=== PATIENT | female | born 1940 | race African-American/Black ===

== ENCOUNTER 2024-12-17 01:49 | Emergency (ER) | payer OTHER ==
[~2024-12-17] VITALS: Ht 165.1 cm; Wt 104.0 kg
[2024-12-17 01:56] VITALS: O2SAT 98
[2024-12-17 02:22] LABS: BASOPHILS % 0.5 % (0.0-2.0); EOSINOPHILS % 2.8 % (0.0-5.0); HEMATOCRIT. 41.3 % (36.0-48.0); HEMOGLOBIN. 13.4 g/dL (12.0-16.0); LYMPHOCYTES % 14.3 % (20.0-50.0); MEAN CORPUSCULAR HEMOGLOBIN 29.4 pg (28.0-32.0); MEAN CORPUSCULAR HGB CONC 32.4 g/dL (31.0-37.0); MEAN CORPUSCULAR VOLUME 90.9 fL (81.0-99.0); MEAN PLATELET VOLUME 8.1 fl (7.4-10.4); MONOCYTES % 9.5 % (2.0-8.0); NEUTROPHILS % 72.9 % (40.0-76.0); PLATELET 166 x1000/uL (130-400); RED BLOOD CELL COUNT 4.55 mill/uL (4.2-5.4); RED CELL DISTRIBUTION WIDTH 15.8 % (11.6-14.6); WHITE BLOOD COUNT 6.7 x1000/uL (4.5-11.0)
[2024-12-17 02:34] LABS: POTASSIUM 3.7 mEq/L (3.5-5.1)
[2024-12-17 02:35] LABS: CALCIUM 9.3 mg/dL (8.7-10.4)
[2024-12-17 02:40] LABS: CREATININE 1.2 mg/dL (0.6-1.0)
[2024-12-17] MEDS: MORPHINE SULFATE 2 MG/ML INJ (NOT FOR IM USE) IV ONE (03:20)
[2024-12-17] MEDS: ACETAMINOPHEN 325MG TABLET PO ONE (04:12)
[2024-12-17] MEDS: GABAPENTIN 100MG CAPSULE PO ONE (04:12)
[2024-12-17 07:47] VITALS: BP 156/75; PULSE 70; RESP 16; TEMP 36.6; O2SAT 98
== END 2024-12-17 08:17 ==
LOC: ER 01:49 → CANBEDREQ 06:52 → ER 08:17
DX: M79.652 Pain in left thigh (principal); I10 Essential (primary) hypertension; E11.9 Type 2 diabetes mellitus without complications; Z96.649 Presence of unspecified artificial hip joint; Z88.8 Allergy status to other drugs, medicaments and biological substances
CPT/HCPCS: 36415; 80048; 85025; 99285; J2270

== ENCOUNTER 2025-03-29 10:07 | Emergency (ER) | payer OTHER ==
[~2025-03-29] VITALS: Ht 162.6 cm; Wt 77.0 kg
[2025-03-29 10:09] VITALS: TEMP 36.6; O2SAT 97
[2025-03-29] MEDS ORDERED: ACYC-58 MT (13:12)
[2025-03-29] MEDS ORDERED: DEXT15DR5 EACHEYE (13:12)
[2025-03-29] MEDS ORDERED: P50 MT (13:13)
[2025-03-29 14:17] VITALS: BP 157/74; PULSE 69; RESP 18; O2SAT 100
== END 2025-03-29 14:20 | disposition home or self-care (01) ==
LOC: ER 10:07
DX: G51.0 Bell's palsy (principal); Z95.0 Presence of cardiac pacemaker; I10 Essential (primary) hypertension; E11.9 Type 2 diabetes mellitus without complications; J45.909 Unspecified asthma, uncomplicated; Z88.8 Allergy status to other drugs, medicaments and biological substances; Z79.899 Other long term (current) drug therapy
CPT/HCPCS: 93005; 99283